=== PATIENT | female | born 1975 | race American Indian/Alaskan Native ===

== ENCOUNTER 2021-01-24 07:35 | Day surgery (SDC) | payer OTHER ==
[2021-01-15 12:22] LABS: Hematocrit 37.8 % (30.3-42.9); Hemoglobin 12.7 gm/dl (10.1-14.3); Mean Corpuscular HGB Conc 34 % (30-34); Mean Corpuscular Volume 94 fl (79-97); Red Blood Count 4.01 M/mm3 (3.65-5.03); Red Cell Distribution Width 13.8 % (13.2-15.2)
[2021-01-15 12:34] LABS: Blood Urea Nitrogen 17 mg/dL (7-17); Calcium 9.3 mg/dL (8.4-10.2); Hemolysis Index 13
[2021-01-15 13:02] LABS: BUN/Creatinine Ratio 28
[2021-01-15 14:47] LABS: Platelet Count 179 K/mm3 (140-440)
--- NOTE | 2021-01-16 20:20 | History and Physical Report ---
History of Present Illness Date of examination: 01/15/21 Chief complaint: Dysfunctional Uterine Bleeding History of present illness: Pt is a 45 year old -[place] presents for surgical management of dysfunctional uterine bleeding. She has a h/o uterine fibroids. Ultrasound from 10/19/20 reveals uterus 9.15 cm; 3 fibroids intramural fibroids ranging from 2.3-4.6 cm Past History Past Medical History: hypertension Past Surgical History: other (back surgery ) Family/Genetic History: diabetes, hypertension Social history: no significant social history - Obstetrical History : 2 Para: 1 Hx # Term Pregnancies: 1 Number of Pregnancies: 0 Spontaneous Abortions: 1 Induced : 0 Number of Living Children: 1 Medications and Allergies Allergies Allergy/AdvReac Type Severity Reaction Status Date / Time acetaminophen [From Percocet] Allergy Hives Verified 03/04/14 08:04 oxycodone HCl [From Percocet] Allergy Hives Verified 03/04/14 08:04 metronidazole AdvReac Severe Dizziness Verified 01/08/21 12:33 Home Medications Medication Instructions Recorded Confirmed Last Taken Type Lisinopril/Hydrochlorothiazide 20 mg PO QDAY 01/08/21 Unknown History [Zestoretic 10-12.5 mg] Active Meds: Active Medications Lactated Ringer's (Lactated Ringers) 1,000 mls @ 100 mls/hr IV DIRECT AVIVA Stop: 01/17/21 23:59 Cefazolin Sodium (Ancef/Sterile Water 2 Gm/20 Ml) 2 gm in 20 mls @ 80 mls/hr IV PREOP NR; Protocol Midazolam HCl (Midazolam 2 Mg/2 Ml Inj) 2 mg IV PREOP NR Stop: 01/17/21 23:01 Review of Systems All systems: negative - Vital Signs Vital signs: Vital Signs Temp Pulse Resp BP Pulse Ox 98.3 F 68 20 124/63 100 01/15/21 11:40 01/15/21 11:40 01/15/21 11:40 01/15/21 11:40 01/15/21 11:40 Temp Pulse Resp BP Pulse Ox 98.3 F 68 20 124/63 100 01/15/21 11:40 01/15/21 11:40 01/15/21 11:40 01/15/21 11:40 01/15/21 11:40 - Physical Exam Breasts: Positive: deferred Abdomen: Positive: soft (obese ) Extremities: Positive: normal Results Result Diagrams: 01/15/21 11:45 01/15/21 06:00 All other labs normal. Assessment and Plan A: Dysfunctional Uterine Bleeding Uterine Fibroids Obesity P: Proceed with hysteroscopy, Myosure endometrial sampling and possible myomectomy, Novasure endometrial ablation and other indicated procedures
[~2021-01-24 07:35] MED LIST: LACTATED RINGERS 1,000 ML IV SCH; MIDAZOLAM 2 MG/2 ML INJ IV NR; SODIUM CHLORIDE 0.9% 1000 ML 1,000 ML IV SCH; ceFAZolin/Water 2 GM/20 ML 2 GM/20 ML SYRINGE IV NR
--- NOTE | 2021-01-24 07:56 | Anesthesia Day of Surgery ---
Anesthesia Day of Surgery - Day of Surgery Patient Examined: Yes Patient H&P Reviewed: Yes Patient is NPO: Yes
--- NOTE | 2021-01-24 07:57 | Anesthesia Consultation ---
Anesthesia Consult and Med Hx Date of service: 01/24/21 - Airway Anesthetic Teeth Evaluation: Crowns ROM Head & Neck: Adequate Mental/Hyoid Distance: Adequate Mallampati Class: Class II Intubation Access Assessment: Good - Pre-Operative Health Status ASA Pre-Surgery Classification: ASA2 Proposed Anesthetic Plan: General - Pulmonary Hx Smoking: Yes (APPROX 10 CIG. PER DAY) Hx Sleep Apnea: No - Cardiovascular System Hx Hypertension: Yes Hx Heart Attack/AMI: No - Central Nervous System Hx Seizures: No Hx Back Pain: Yes Hx Psychiatric Problems: No - Gastrointestinal Hx Gastroesophageal Reflux Disease: Yes (Occasional Heartburn-no rx) - Endocrine Hx End Stage Renal Disease: No - Hematic Hx Anemia: No Hx Sickle Cell Disease: No - Other Systems Hx Alcohol Use: Yes (OFTEN-BEER AND COUPLE SHOTS LIQUER) Hx Substance Use: No Hx Cancer: No
[2021-01-24] MEDS ORDERED: MIDAZOLAM 2 MG/2 ML INJ IV NR (08:00)
[2021-01-24] MEDS ORDERED: fentaNYL 100 MCG/2 ML INJ ONE (08:13)
[2021-01-24] MEDS ORDERED: LIDOCAINE MPF (2%) 20 MG/1 ML VIAL 5 ML ONE (08:13)
[2021-01-24] MEDS ORDERED: KETAMINE/STERILE WATER 50 MG/ML SYRINGE ONE (08:13)
[2021-01-24] MEDS ORDERED: propofoL 200 MG/20 ML VIAL IV ONE (08:13)
[2021-01-24] MEDS ORDERED: ONDANSETRON 4 MG/2 ML INJ IV PRN (09:00)
[2021-01-24] MEDS ORDERED: HYDROmorphone 1 MG/1 ML INJ IV PRN ×2 (09:00)
[2021-01-24] MEDS ORDERED: SODIUM CHLORIDE 0.9% IRR 1,500 ML BOTTLE IR ONE (09:30)
[2021-01-24] MEDS ORDERED: SODIUM CHLORIDE 0.9% IRRIG SOLN 2000 ML IR ONE (09:30)
[2021-01-24] MEDS ORDERED: dexAMETHasone 20 MG/5 ML VIAL ONE (09:36)
[2021-01-24] MEDS ORDERED: KETOROLAC 30 MG/1 ML INJ ONE (09:36)
--- NOTE | 2021-01-24 10:03 | Operative Report ---
Operative Report Operative Report: Date of Procedure: January 24, 2021 Preoperative Diagnosis: 1) Dysfunctional Uterine Bleeding 2) Fibroid Uterus Postoperative Diagnosis: Same Procedure: 1) Hysteroscopy 2) Myosure endometrial sampling 3) Novasure endometrial ablation Surgeon: Jeanne Kelly MD Findings: 1) Anteverted uterus that sounded to 10 cm 2) Minimal tissue in endometrial cavity visible on hysteroscopy Anesthesia: GETA EBL: 50 mL Deficit: 150 mL Urine output: 50 mL, clear prior to the procedure Specimen: Endometrial curettings to pathology Complications: None. Counts correct x 2 Disposition: Stable to PACU Indication for Procedure: The patient is a 45 year old who presents for surgical management of dysfunctional uterine bleeding. Operation in detail: After the risks, complications, alternatives and benefits were signed to the patient she gave informed consent for the procedure. She was subsequently taken to the operating room with her IV noted to be running well and placed in the dorsal supine position. SCDs were noted to be in place and functioning. General anesthesia was then induced without difficulty. The patient was then placed in the dorsal lithotomy position and prepped and draped in normal sterile fashion. A timeout was performed. An exam under anesthesia revealed an anteverted uterus. The bladder was then drained with a catheter yielding 50 mL of clear urine. An open sided bivalve speculum was placed into the vagina for adequate visualization of the cervix. A single-tooth tenaculum was placed on the anterior lip of the cervix for traction. The uterus was then gently sounded to 10 cm. The cervix was then serially dilated with Sanchez dilators to a #19. The hysteroscope was then introduced into the uterine cavity with findings of a thin endometrium. At this time, the Myosure device was introduced to sample the endometrial cavity performed per protocol. Subsequently all instruments were removed from the uterus atraumatically. At this time, attention was turned to the endometrial ablation. An open sided speculum was then placed into the vagina for adequate visualization of the cervix. The anterior lip of the cervix was then grasped with a tenaculum for traction. The cervical length was then sounded to 5 cm and the uterus was then sounded to 5 cm. The cavity length was then noted to be 5 cm. The disposable NovaSure device was connected to the RF controller. The NovaSure disposable device was deployed to the locked position and noted to fully extend. The device was then placed in the unlocked position. The disposable device was then inserted into the uterine cavity with traction on the tenaculum. The device was then seated per protocol. After moving the device back 0.5 cm, the device was moved superiorly and inferiorly and rotated clockwise and counterclockwise to 45. The cavity width at this time was noted to be 3 cm. The cervical collar was then advanced to the cervix. The cavity assessment was then initiated and passed. The ablation procedure was then initiated and lasted for 1 min 31 seconds. The cervical collar was moved away from the cervix, the device was moved to the unlocked position, and the disposable NovaSure device was removed from the uterine cavity. At this time the single-tooth tenaculum was removed from the cervix. The tenaculum puncture sites were hemostatic with use of pressure and silver nitrate. All instruments were removed from the vagina and the procedure was ended. The patient was replaced into the dorsal supine position and extubated without difficulty. She was subsequently taken to the PACU in stable condition. She tolerated the procedure well. All counts were correct 2.
--- NOTE | 2021-01-24 10:06 | Short Stay Summary ---
Short Stay Documentation Date of service: 01/24/21 - History H&P: dictated Social history: no significant social history - Allergies and Medications Current Medications: Allergies acetaminophen [From Percocet] Allergy (Verified 03/04/14 08:04) Hives oxycodone HCl [From Percocet] Allergy (Verified 03/04/14 08:04) Hives metronidazole Adverse Reaction (Severe, Verified 01/08/21 12:33) Dizziness nausea Home Medications Medication Instructions Recorded Confirmed Last Taken Type Lisinopril/Hydrochlorothiazide 20 mg PO QDAY 01/08/21 Unknown History [Zestoretic 10-12.5 mg] Active Medications Hydromorphone HCl (Hydromorphone 1 Mg/1 Ml Inj) 0.25 mg IV Q10MIN PRN PRN Reason: Pain, Moderate (4-6) Stop: 01/24/21 15:00 Hydromorphone HCl (Hydromorphone 1 Mg/1 Ml Inj) 0.5 mg IV Q10MIN PRN PRN Reason: Pain , Severe (7-10) Stop: 01/24/21 17:00 Sodium Chloride (Nacl 0.9% 1000 Ml) 1,000 mls @ 75 mls/hr IV DIRECT AVIVA Midazolam HCl (Midazolam 2 Mg/2 Ml Inj) 2 mg IV PREOP NR Stop: 01/24/21 23:59 Ondansetron HCl (Ondansetron 4 Mg/2 Ml Inj) 4 mg IV ONCE PRN PRN Reason: Nausea And Vomiting - Physical exam Breasts: deferred - Brief post op/procedure progress note Date of procedure: 01/24/21 Pre-op diagnosis: Dysfunctional Uterine Bleeding, Fibroid Uterus Post-op diagnosis: same Procedure: 1) Hysteroscopy 2) Myosure endometrial sampling 3) Novasure endometrial ablation Anesthesia: GETA Findings: 1) Anteverted uterus that sounded to 10 cm 2) Minimal tissue in endometrial cavity visible on hysteroscopy 3) Multiple Intramural Uterine Fibroids Surgeon: GURU KELLY Estimated blood loss: 50-100ml (50 mL) Pathology: list (endometrial curettings) Specimen disposition: to lab Condition: stable - Hospital course Hospital course: Patient underwent hysteroscopy, MyoSure endometrial sampling and NovaSure endometrial ablation which he tolerated well. She was observed in the PACU until she meets discharge criteria. She will follow-up in 1 week in the office with Dr. Kelly. - Disposition Condition at discharge: Stable Disposition: 01 HOME / SELF CARE / HOMELESS - Discharge Diagnoses (1) DUB (dysfunctional uterine bleeding) Status: Acute (2) Fibroid uterus Status: Acute Qualifiers: Uterine leiomyoma location: intramural Qualified Code(s): D25.1 - Intramural leiomyoma of uterus (3) Hypertension Status: Acute Qualifiers: Hypertension type: unspecified secondary hypertension Qualified Code(s): I15.9 - Secondary hypertension, unspecified; I15 - Secondary hypertension Short Stay Discharge Plan Activity: other (Nothing in vagina, no tub baths, no intercourse, no cigarettes, no alcohol x 4 wks ) Weight Bearing Status: Full Weight Bearing Diet: regular Follow up with: MAU HALL [Other] - 7 Days GURU KELLY MD [Staff Physician] - 7 Days Prescriptions: Ibuprofen [Motrin] 800 mg PO Q8HR PRN #30 tablet PRN Reason: Pain, Moderate (4-6) HYDROcodone/APAP 5-325 [[place] 5/325] 1 each PO Q6HR PRN #20 tablet PRN Reason: Pain
--- NOTE | 2021-01-24 17:26 | Post Anesthesia Evaluation ---
- Post Anesthesia Evaluation Patient Participated: Yes Airway Patent: Yes Stable Respiratory Function: Yes Nausea/Vomiting: No Temp > 96.8F: Yes Pain Manageable: Yes Adequeate Hydration: Yes Anesthesia Complications: No Block Receding Appropriately: Not Applicable Patient on Ventilator: No
[2021-01-24 18:31] VITALS: BP 140/60
== END 2021-01-24 11:40 | disposition home or self-care (01) ==
LOC: OR 07:35
PROVIDERS: ATTEND Obstetrics & Gynecology
DX: N93.8 Other specified abnormal uterine and vaginal bleeding (principal); D25.9 Leiomyoma of uterus, unspecified; Z20.822 Contact with and (suspected) exposure to COVID-19; I10 Essential (primary) hypertension; K21.9 Gastro-esophageal reflux disease without esophagitis; E66.9 Obesity, unspecified; F17.210 Nicotine dependence, cigarettes, uncomplicated; Z79.899 Other long term (current) drug therapy; Z88.8 Allergy status to other drugs, medicaments and biological substances; Z98.890 Other specified postprocedural states
CPT/HCPCS: 36415; 58563; 80048; 81025; 84703; 85027; 88305; A4217; C1782; J1100; J1170; J1885; J2250; J2405; J2704; J3010; J3490; J7030; U0003